=== PATIENT | female | born 1995 | race Caucasian/White ===

== ENCOUNTER 2017-10-30 17:39 | Emergency (ER) | payer OTHER ==
[~2017-10-30] VITALS: Ht 167.6 cm; Wt 93.0 kg
[2017-10-30 17:45] VITALS: BP_SYST 132; BP_SYST 139; BP_DIAS 80; BP_DIAS 82
--- NOTE | 2017-10-30 17:45 | NUR ---
PATIENT TAKEN TO ER BED 12 VIA EMS
--- NOTE | 2017-10-30 18:00 | NUR ---
[facility] BEDSIDE
--- NOTE | 2017-10-30 18:18 | NUR ---
DR. VERONICA EVALUATING PATIENT BEDSIDE
--- NOTE | 2017-10-30 18:23 | NUR ---
ASSUMED PATIENT CARE, CONCUR WITH TRIAGE. NURSING ASSESSMENT COMPLETED. [employer] DIRECT[employer] [place] [id number] AT BEDSIDE COMPLETING POLICE REPORT. POLICE REPORT NUMBER [id number].
--- NOTE | 2017-10-30 18:34 | NUR ---
TO CT VIA [facility].
--- NOTE | 2017-10-30 18:53 | NUR ---
BACK FROM CT, RESUMED ED CARE.
--- NOTE | 2017-10-30 19:00 | NUR ---
REPORT RECEIVED FROM SWAPNA RN, TRANSFER OF CARE AT THIS TIME.
[2017-10-30] MEDS ORDERED: IBUPROFEN 800 MG TAB PO ONE (19:20)
[2017-10-30] MEDS ORDERED: IBUPROFEN 800 MG TAB ONE (19:22)
--- NOTE | 2017-10-30 19:50 | NUR ---
CALLED [facility] FOR F/U REGARDING PICTURES, [employer]ENS[employer] TECH WILL ARRIVE WITHIN 30 MIN.
--- NOTE | 2017-10-30 20:15 | NUR ---
PATIENT EXPRESSES WISH TO LEAVE. [facility] UPDATED.
[2017-10-30 20:16] VITALS: BP 130/85
== END 2017-10-30 20:16 | disposition home or self-care (01) ==
LOC: MED 17:39
DX: S09.90XA Unspecified injury of head, initial encounter (principal); R03.0 Elevated blood-pressure reading, without diagnosis of hypertension; Y04.8XXA Assault by other bodily force, initial encounter
CPT/HCPCS: 70486; 81025; 90471; 90715; 99284